=== PATIENT | female | born 1930 | race Caucasian/White ===

== ENCOUNTER → 2017-04-08 | Outpatient (CLI) | payer MEDICARE, OTHER ==
--- NOTE | 2017-04-11 14:08 | MM ---
Reason for exam: screening (asymptomatic). Last mammogram was performed 1 year and 1 month ago. History: Patient is postmenopausal and history of other cancer. Benign right mammotome panel of the right breast, May 26, 2009. Took estrogen for 20 years beginning at age 58. Physical Findings: A clinical breast exam by your physician is recommended on an annual basis and results should be correlated with mammographic findings. MG 3D Screening Mammo W/Cad Bilateral CC and MLO view(s) were taken. Prior study comparison: February 24, 2016, bilateral MG screening mammo w CAD. February 05, 2015, bilateral MG screening mammo w CAD. Finding: There is a typically benign equal density (isodense), oval mass located 5 cm from the nipple in the inferior middle position of the right breast, may have been present previously. Previous mammotome biopsy in the right breast x 2. ASSESSMENT: Probably benign, BI-RAD 3 RECOMMENDATION: Follow-up diagnostic mammogram of the right breast in 6 months.
== END | disposition home or self-care (01) ==
LOC: RADMAMWWP 14:04
PROVIDERS: ATTEND Family Medicine
DX: Z12.31 Encounter for screening mammogram for malignant neoplasm of breast (principal)
CPT/HCPCS: 77063; G0202

== ENCOUNTER 2019-08-02 11:48 | Inpatient (IN) | payer MEDICARE, OTHER ==
[2019-08-02] MEDS ORDERED: SODIUM CHLORIDE 0.9% 1,000 ML IV ONE (12:09)
--- NOTE | 2019-08-02 12:09 | ED ---
General Adult HPI - General Chief complaint: Allergic Reaction Stated complaint: allergic reaction Time Seen by Provider: 08/02/19 11:50 Source: patient, EMS, RN notes reviewed, old records reviewed Mode of arrival: EMS Limitations: no limitations - History of Present Illness Initial comments: this is an 89-year-old female presents emergency department after having visited her recent hospital being transferred to us. Patient went to [facility] this morning because of severe right upper quadrant abdominal pain. Patient had an ultrasound and a CAT scan while she was there it did show a distended gallbladder as well as dilated common bile duct and also showed some fluid in theperitoneal cavity. Patient also had a white count elevated liver enzymes. Patient did have reaction to the contrast which was treated at [facility] currently she is not short of breath and having no itching or hives. Patient states her abdominal pain currently is much better but if you press on it does still hurt. Patient denies any shortness of breath or difficulty breathing currently. Patient denies any palpitations. Patient states she always has a little bit of edema to both legs - Related Data Allergies Allergy/AdvReac Type Severity Reaction Status Date / Time codeine Allergy Unknown Verified 08/02/19 11:59 Iodinated Contrast Media Allergy Wheezing Verified 08/02/19 12:01 Penicillins Allergy Unknown Unverified 08/02/19 12:01 Sulfa (Sulfonamide Allergy Unknown Unverified 08/02/19 12:00 Antibiotics) Review of Systems ROS Statement: Those systems with pertinent positive or pertinent negative responses have been documented in the HPI. ROS Other: All systems not noted in ROS Statement are negative. Past Medical History Past Medical History: Cancer Additional Past Medical History / Comment(s): basal cell carcinoma History of Any Multi-Drug Resistant Organisms: None Reported Additional Past Surgical History / Comment(s): Hysterctomy Past Psychological History: No Psychological Hx Reported Smoking Status: Never smoker Past Alcohol Use History: None Reported Past Drug Use History: None Reported General Exam - General Exam Comments Initial Comments: GENERAL: Patient is well-developed and well-nourished. Patient is nontoxic and well- hydrated and is in mild distress. ENT: Neck is soft and supple. No significant lymphadenopathy is noted. Oropharynx is clear. Moist mucous membranes. Neck has full range of motion without eliciting any pain. EYES: The sclera were anicteric and conjunctiva were pink and moist. Extraocular movements were intact and pupils were equal round and reactive to light. Eyelids were unremarkable. PULMONARY: Unlabored respirations. Good breath sounds bilaterally. No audible rales rhonchi or wheezing was noted. CARDIOVASCULAR: There is a regular rate and rhythm without any murmurs gallops or rubs. ABDOMEN: patient is right upper quadrant abdominal tenderness. No palpable organomegaly was noted. There is no palpable pulsatile mass. SKIN: Skin is clear with no lesions or rashes and otherwise unremarkable. NEUROLOGIC: Patient is alert and oriented x3. Cranial nerves II through XII are grossly intact. Motor and sensory are also intact. Normal speech, volume and content. Symmetrical smile. MUSCULOSKELETAL: Normal extremities with adequate strength and full range of motion. 1+ edema bilaterally LYMPHATICS: No significant lymphadenopathy is noted PSYCHIATRIC: Normal psychiatric evaluation. Limitations: no limitations Course Vital Signs 08/02/19 11:50 Temperature 99.1 F Pulse Rate 59 L Respiratory 18 Rate Blood Pressure 119/60 O2 Sat by Pulse 98 Oximetry Medical Decision Making - Medical Decision Making EKG shows normal sinus rhythm at 63 bpm MI interval is 138 QRS is 72 QT interval 46 QTC is 415. Patient's EKG shows no ST segment elevation or depression or T wave abnormalities are noted. I spoke with Dr. Terry Stewart will be happy to see the patient on consult. I called Dr. Yuen I spoke with him he agreed to admit the patient admitted the patient I consult with Dr. Devlin and Dr. Vivar. I wrote admitting orders. Disposition Clinical Impression: Choledocholithiasis with acute cholecystitis Disposition: ADMITTED IP TO THIS HOSP Referrals: Davonte Gross DO [Primary Care Provider] - 1-2 days Time of Disposition: 12:09
[2019-08-02] MEDS ORDERED: HYDROmorphone 0.5 MG/0.5 ML SYRINGE IVP PRN (12:12)
[2019-08-02 14:14] LABS: Appearance,Urine Clear (Clear); Bilirubin,Urine Negative (Negative); Blood,Urine Negative (Negative); Color,Urine Yellow; Glucose,Urine (UA) 2+ (Negative); Ketones,Urine Trace (Negative); Leukocyte Esterase,Urine Negative (Negative); Mucus,Urine Rare /hpf; Nitrite,Urine Negative (Negative); PH, Urine 5.5 (5.0-8.0); Protein,Urine 1+ (Negative); RBC,Urine 1 /hpf (0-5); Urobilinogen,Urine <2.0 mg/dL (<2.0); WBC,Urine <1 /hpf (0-5)
[2019-08-02] MEDS ORDERED: LEVOFLOXACIN 500MG-D5W PMX 500 MG in DEXTROSE/WATER 1 100ML.BAG IVPB SCH (17:00)
[2019-08-02] MEDS: LEVOFLOXACIN 500MG-D5W PMX 500 MG in DEXTROSE/WATER 1 100ML.BAG IVPB SCH (22:27)
--- NOTE | 2019-08-02 22:58 | P.HPIM ---
History of Present Illness H&P Date: 08/02/19 Chief Complaint: Abdominal pain History of presenting complaint: This is a very pleasant [address] Cliff Landis. Chronic stable medical conditions include diabetes mellitus type 2, GERD, hypertension, hyperlipidemia, Luzma arthritis, diabetic peripheral neuropathy and cognitive impairment. Patient not the best of historians. Her son is at the bedside. She been having abdominal pain on and off for quite some time. Last 1 week her pain has become much worse. It seems related to food. In the right upper abdomen. No obvious fever and chills. Localized right upper quadrant. Patient went into [facility]. Computed tomography scan of the abdomen and ultrasound showed sliding hiatal hernia and large gallbladder with thickened wall and stones and common bile duct with 8 mm. We'll also some splenomegaly. And a complex lesion in the right lobe of the liver. Patient subsequently was transferred down here. Consultation with GI and surgery was done. No obvious nausea vomiting. Review of systems: GEN.: Tired EYES: None HEENT: Decreased hearing NECK: None RESPIRATORY: None CARDIOVASCULAR: None GASTROINTESTINAL: As above GENITOURINARY: None MUSCULOSKELETAL: Joint pains] LYMPHATICS: None HEMATOLOGICAL: None PSYCHIATRY: Forgetful NEUROLOGICAL: Uses a cane Social history: Does not smoke or drink alcohol. Lives with her . Does use a cane. Family history: Reviewed, noncontributory to presentation Physical examination: VITAL SIGNS: 96.8, 50, 16, 109/69, 94% on 2 L GENERAL: 29.1, laying in bed not in distress. EYES: Pupils equal. Conjunctiva normal. HEENT: External appearance of nose and ears normal, oral cavity grossly normal decreased hearing. NECK: JVD not raised; masses not palpable. HEART: First and second heart sounds are normal; no edema. LUNGS: Respiratory rate normal; clear to auscultation. ABDOMEN: Soft, mild right upper quadrant tenderness, no guarding or rigidity, liver spleen not palpable, no masses palpable. PSYCH: [Patient able to answer questions though rather slowly l. NEUROLOGICAL: Cranial nerves grossly intact; no facial asymmetry, power and sensation grossly intact. LYMPHATICS: No lymph nodes palpable in the axilla and neck MUSCULOSKELETAL: Evidence of OA especially in the hands and knees INVESTIGATIONS, reviewed in the clinical context: Report from [facility] shows potassium 4.4 bun 25 creatinine 1 white count 15.8 hemoglobin 9.6 platelets 141 AST 182 ALT 135 Computed tomography scan of the abdomen and ultrasound of the liver show sliding hiatal hernia gallbladder with stones thickened gallbladder wall: Bilateral 8 mm and lesion complex in the right lobe liver, splenomegaly Assessment: -Choledocholithiasis, with symptoms coming on for quite some time now with acute presentation -Splenomegaly -Sliding hiatal hernia -Diabetes mellitus type 2 on oral hypoglycemic -Chronic urinary stress incontinence -Essential hypertension -Hyperlipidemia -Diabetic peripheral neuropathy -Primary osteoarthritis -GERD -Cognitive impairment Plan: Home medications resumed Accu-Cheks will be followed. Lovenox for DVT prophylaxis. Patient is nothing by mouth after midnight.'s. Consultations made to GI surgery. Care was discussed with son at the bedside. Past Medical History Past Medical History: Cancer, Diabetes Mellitus, GERD/Reflux, GI Bleed, Hyperlipidemia, Hypertension, Osteoarthritis (OA) Additional Past Medical History / Comment(s): basal cell carcinoma, hisotry of kindey stones History of Any Multi-Drug Resistant Organisms: None Reported Additional Past Surgical History / Comment(s): Hysterctomy Past Psychological History: No Psychological Hx Reported Smoking Status: Never smoker Past Alcohol Use History: None Reported Past Drug Use History: None Reported Medications and Allergies Home Medications Medication Instructions Recorded Confirmed Type ALPRAZolam [Xanax] 0.25 mg PO QAM 08/02/19 08/02/19 History Allopurinol [Zyloprim] 100 mg PO HS 08/02/19 08/02/19 History Ascorbic Acid [Vitamin C] 500 mg PO QAM 08/02/19 08/02/19 History Cholecalciferol (Vitamin D3) 2,000 unit PO QAM 08/02/19 08/02/19 History [Vitamin D3] Donepezil HCl [Aricept] 5 mg PO HS 08/02/19 08/02/19 History Fosinopril Sodium [Monopril] 20 mg PO BID 08/02/19 08/02/19 History Gabapentin [Neurontin] 300 mg PO BID 08/02/19 08/02/19 History Glimepiride [Amaryl] 2 mg PO AC-SUPPER 08/02/19 08/02/19 History Glimepiride [Amaryl] 4 mg PO AC-BRKFST 08/02/19 08/02/19 History Multivitamins, Thera [Multivitamin 1 tab PO QAM 08/02/19 08/02/19 History (formulary)] Potassium Chloride [Klor-Con 20] 20 meq PO QAM 08/02/19 08/02/19 History Pravastatin Sodium [Pravachol] 20 mg PO HS 08/02/19 08/02/19 History Ranitidine HCl [Zantac] 150 mg PO HS 08/02/19 08/02/19 History Tolterodine Tartrate [Detrol LA] 4 mg PO QAM 08/02/19 08/02/19 History amLODIPine [Norvasc] 5 mg PO QAM 08/02/19 08/02/19 History metFORMIN HCL [Glucophage] 500 mg PO DAILY 08/02/19 08/02/19 History Allergies Allergy/AdvReac Type Severity Reaction Status Date / Time aspirin Allergy Unknown Verified 08/02/19 12:55 codeine Allergy Unknown Verified 08/02/19 12:55 Iodinated Contrast Media Allergy Wheezing Verified 08/02/19 12:55 Penicillins Allergy Unknown Verified 08/02/19 12:55 Sulfa (Sulfonamide Allergy Unknown Verified 08/02/19 12:55 Antibiotics) Physical Exam Vitals: Vital Signs Temp Pulse Pulse Resp BP BP Pulse Ox 08/02/19 20:00 96.8 F L 50 L 16 109/69 94 L 08/02/19 16:00 52 L 18 104/50 98 08/02/19 15:00 55 L 18 105/55 98 08/02/19 14:00 50 L 18 98 08/02/19 13:00 58 L 18 105/55 98 08/02/19 12:57 58 L 18 117/52 98 08/02/19 11:57 58 L 18 124/76 98 08/02/19 11:50 99.1 F 59 L 18 119/60 98 Intake and Output 08/02/19 08/02/19 08/02/19 06:59 14:59 22:59 Other: # Voids 0 Weight 79.379 kg 79.379 kg Results Labs: Abnormal Lab Results - Last 24 Hours (Table) 08/02/19 Range/Units 13:23 Ur Specific [place] 1.050 H (1.001-1.035) Urine Protein 1+ H (Negative) Urine Glucose (UA) 2+ H (Negative) Urine Ketones Trace H (Negative) Urine Mucus Rare H (None) /hpf Thrombosis Risk Factor Assmnt - Choose All That Apply Any of the Below Risk Factors Present?: Yes Each Factor Represents 1 point: Minor surgery planned Other Risk Factors: Yes Each Risk Factor Represents 3 Points: Age 75 years or older Thrombosis Risk Factor Assessment Total Risk Factor Score: 4 Thrombosis Risk Factor Assessment Level: Moderate Risk
[2019-08-03] MEDS: DONEPEZIL 5 MG TAB PO SCH (00:26)
[2019-08-03] MEDS: ALLOPURINOL 100 MG TAB PO SCH ×2 (00:26→23:04)
[2019-08-03] MEDS: GABAPENTIN 300 MG CAP PO SCH ×3 (00:26→23:04)
[2019-08-03] MEDS: PRAVASTATIN SODIUM 20 MG TAB PO SCH ×2 (00:27→23:04)
--- NOTE | 2019-08-03 01:41 | P.CONS ---
History of Present Illness - Reason for Consult Consult date: 08/02/19 Abdominal pain Requesting physician: Denis Yuen - Chief Complaint Abdominal pain - History of Present Illness 83-year-old female with medical history including diabetes mellitus, GERD, hypertension, hyperlipidemia, osteoarthritis and memory impairment presented to the hospital as a transfer from [facility] where she had been seen with complaints of abdominal pain. The patient had been having severe abdominal pain associated with eating. Predominantly in the epigastric region and right upper quadrant of her abdomen. She underwent evaluation with computed tomography scan of the abdomen with findings of a dilated gallbladder with an 8 mm CBD and a hiatal hernia. Concerns were for possible biliary pathology patient pain and she was transferred for further evaluation. The patient is seen resting comfortably in bed. Of note history is been taken in conversation with the patient's daughter, with the patient and on review of the medical record. Review of Systems REVIEW OF SYSTEMS: CONSTITUTIONAL: Denies any fevers, chills, weight change or fatigue. CARDIOVASCULAR: Denies any chest pain, palpitations high or low blood pressures RESPIRATORY: Denies any shortness of breath, hemoptysis or cough. GENITOURINARY: No dysuria or hematuria. MUSCULOSKELETAL: No weakness reported. SKIN: Denies any new rashes or lesions, jaundice or pallor. PSYCHIATRIC: Denies any depression or anxiety, memory impairment based. NEUROLOGY: Denies headache, denies any new focal deficits. EARS/NOSE/THROAT: No recent hearing change, congestion, nasal discharge or sore throat. EYES: No pain in eyes, discharge or change in vision. GASTROINTESTINAL: As per HPI. Past Medical History Past Medical History: Cancer, Diabetes Mellitus, GERD/Reflux, GI Bleed, Hyperlipidemia, Hypertension, Osteoarthritis (OA) Additional Past Medical History / Comment(s): basal cell carcinoma, hisotry of kindey stones History of Any Multi-Drug Resistant Organisms: None Reported Additional Past Surgical History / Comment(s): Hysterctomy Past Psychological History: No Psychological Hx Reported Smoking Status: Never smoker Past Alcohol Use History: None Reported Past Drug Use History: None Reported Additional History: Family history: Reviewed and noncontributory to current medical presentation. Medications and Allergies Home Medications Medication Instructions Recorded Confirmed Type ALPRAZolam [Xanax] 0.25 mg PO QAM 08/02/19 08/02/19 History Allopurinol [Zyloprim] 100 mg PO HS 08/02/19 08/02/19 History Ascorbic Acid [Vitamin C] 500 mg PO QAM 08/02/19 08/02/19 History Cholecalciferol (Vitamin D3) 2,000 unit PO QAM 08/02/19 08/02/19 History [Vitamin D3] Donepezil HCl [Aricept] 5 mg PO HS 08/02/19 08/02/19 History Fosinopril Sodium [Monopril] 20 mg PO BID 08/02/19 08/02/19 History Gabapentin [Neurontin] 300 mg PO BID 08/02/19 08/02/19 History Glimepiride [Amaryl] 2 mg PO AC-SUPPER 08/02/19 08/02/19 History Glimepiride [Amaryl] 4 mg PO AC-BRKFST 08/02/19 08/02/19 History Multivitamins, Thera [Multivitamin 1 tab PO QAM 08/02/19 08/02/19 History (formulary)] Potassium Chloride [Klor-Con 20] 20 meq PO QAM 08/02/19 08/02/19 History Pravastatin Sodium [Pravachol] 20 mg PO HS 08/02/19 08/02/19 History Ranitidine HCl [Zantac] 150 mg PO HS 08/02/19 08/02/19 History Tolterodine Tartrate [Detrol LA] 4 mg PO QAM 08/02/19 08/02/19 History amLODIPine [Norvasc] 5 mg PO QAM 08/02/19 08/02/19 History metFORMIN HCL [Glucophage] 500 mg PO DAILY 08/02/19 08/02/19 History Allergies Allergy/AdvReac Type Severity Reaction Status Date / Time aspirin Allergy Unknown Verified 08/02/19 12:55 codeine Allergy Unknown Verified 08/02/19 12:55 Iodinated Contrast Media Allergy Wheezing Verified 08/02/19 12:55 Penicillins Allergy Unknown Verified 08/02/19 12:55 Sulfa (Sulfonamide Allergy Unknown Verified 08/02/19 12:55 Antibiotics) Physical Exam Vitals: Vital Signs Temp Pulse Pulse Resp BP BP Pulse Ox 08/02/19 20:00 96.8 F L 50 L 16 109/69 94 L 08/02/19 16:00 52 L 18 104/50 98 08/02/19 15:00 55 L 18 105/55 98 08/02/19 14:00 50 L 18 98 08/02/19 13:00 58 L 18 105/55 98 08/02/19 12:57 58 L 18 117/52 98 08/02/19 11:57 58 L 18 124/76 98 08/02/19 11:50 99.1 F 59 L 18 119/60 98 Intake and Output 08/02/19 08/02/19 08/03/19 14:59 22:59 06:59 Other: # Voids 0 Weight 79.379 kg 79.379 kg On physical examination, patient appears comfortable in no apparent distress. HEAD: Normocephalic, atraumatic. EYES: No scleral icterus. No conjunctival injection. MOUTH: No lesions, tongue midline. NECK: Trachea midline, no gross abnormalities. CHEST: Decreased air entry in all lung abreu. HEART: S1-S2 appreciated. ABDOMEN: Soft, mildly tender to palpation. Bowel sounds are positive. No organomegaly. No guarding or rigidity. EXTREMITIES: No pedal edema. SKIN: No rashes, no jaundice. NEUROLOGIC: Alert and oriented to person. Results Labs: Abnormal Lab Results - Last 24 Hours (Table) 08/02/19 Range/Units 13:23 Ur Specific [place] 1.050 H (1.001-1.035) Urine Protein 1+ H (Negative) Urine Glucose (UA) 2+ H (Negative) Urine Ketones Trace H (Negative) Urine Mucus Rare H (None) /hpf CT scan - abdomen: report reviewed (Computed tomography scan of the abdomen with findings of an 8 mm CBD, distended gallbladder with stones and sludge) Assessment and Plan (1) Abdominal pain Narrative/Plan: 81-year-old female with multiple medical comorbidities presenting to the hospital with complaints of abdominal pain, with computed tomography scan findings of a distended gallbladder with gallstones and an 8 mm common bile duct. Patient also had elevation in her liver enzymes in both a cholestatic and hepatocellular pattern with total bilirubin greater than 2. Unclear if secondary to acute cholecystitis, a gallstone which has passed through the bile duct, choledocholithiasis, or other etiology. Current Visit: Yes Status: Acute Code(s): R10.9 - UNSPECIFIED ABDOMINAL PAIN SNOMED Code(s): 23827171 (2) Cholelithiasis Current Visit: Yes Status: Acute Code(s): K80.20 - CALCULUS OF GALLBLADDER W/O CHOLECYSTITIS W/O OBSTRUCTION SNOMED Code(s): 119939822 (3) Elevated liver enzymes Current Visit: Yes Status: Acute Code(s): R74.8 - ABNORMAL LEVELS OF OTHER SERUM ENZYMES SNOMED Code(s): 476671617 Plan: Supportive care Nothing by mouth Levofloxacin added for antibiotic coverage Continue monitor CBC, CMP Computed tomography scan abdomen report reviewed MRCP pending for further evaluation of the biliary system No plans for ERCP at this time, however if liver enzymes continue to trend up or MRCP imaging is consistent with choledocholithiasis will proceed to ERCP The case has been discussed with the patient and her daughter at length, we'll continue to follow with further recommendations based on clinical course, as well as imaging and laboratory evaluation Thank you for allowing us to participate in the care of this patient we will continue to follow
[2019-08-03] MEDS: ALPRAZolam 0.25 MG TAB PO SCH (07:18)
[2019-08-03 07:21] LABS: Glucose,Whole Blood 214 mg/dL (75-99)
[2019-08-03] MEDS: amLODIPine 5 MG TAB PO SCH (07:27)
[2019-08-03] MEDS: LISINOPRIL 20 MG TAB PO SCH (07:27)
[2019-08-03] MEDS: ENOXAPARIN 40 MG/0.4 ML SYRINGE SQ SCH (07:28)
[2019-08-03] MEDS: INSULIN ASPART (NovoLOG) 100 UNIT/ML VIAL SQ SCH ×3 (07:28→16:44)
[2019-08-03] MEDS: OXYBUTYNIN 10 MG TAB.ER.24 PO SCH (07:33)
[2019-08-03] MEDS ORDERED: VANCOMYCIN IV PER PHARMACY 1 EACH MISC MISCELLANE PRN (09:26)
[2019-08-03 09:41] LABS: Basophils % (A) 0 %; Eosinophils % (A) 0 %; HCT 27.7 % (34.0-46.0); HGB 8.7 gm/dL (11.4-16.0); Hypochromasia Moderate; Lymphocytes # (A) 0.4 k/uL (1.0-4.8); Lymphocytes % (A) 3 %; MCH 28.3 pg (25.0-35.0); MCHC 31.3 g/dL (31.0-37.0); MCV 90.4 fL (80.0-100.0); Mean Platelet Volume 9.4; Monocytes # (A) 0.3 k/uL (0-1.0); Monocytes % (A) 2 %; Neutrophils # (A) 10.6 k/uL (1.3-7.7); Neutrophils % (A) 94 %; Platelet Count 109 k/uL (150-450); RBC 3.07 m/uL (3.80-5.40); RDW 15.4 % (11.5-15.5); WBC 11.3 k/uL (3.8-10.6)
[2019-08-03 09:57] LABS: Albumin 2.9 g/dL (3.5-5.0); Calcium 8.5 mg/dL (8.4-10.2); Potassium 5.6 mmol/L (3.5-5.1); Total Protein 5.6 g/dL (6.3-8.2)
[2019-08-03] MEDS ORDERED: VANCOMYCIN 1,500 MG in SODIUM CHLORIDE 0.9% 250 ML IVPB ONE (10:00)
[2019-08-03] MEDS ORDERED: INDOMETHACIN 50MG SUPPOSITORY RECTAL ONE (12:00)
[2019-08-03 12:10] LABS: Glucose,Whole Blood 190 mg/dL (75-99)
--- NOTE | 2019-08-03 12:17 | MR ---
MRCP HISTORY: Elevated liver function tests and bilirubin Multiplanar multisequence imaging obtained through the liver and biliary system with three-dimensiona l reconstructions performed on an alternate workstation. No comparisons There is artifact over the exam The spleen is enlarged at approximately 14. cm in cephalad to caudal dimension, there is a hypointens e focus on T2-weighted sequences inferiorly measuring 18 mm. Mildly T2 intense focus in the posterior aspect of the spleen measures approximately 3.4 cm. Smaller T2 intense focus present in the posterio r aspect of the spleen medially measures 16 mm, axial image 21 series 501 shows T2 intense focus petra uring only 7 mm laterally within the spleen, additional small lesions may be present. The gallbladder is distended and shows dependent luminal foci of low intensity compatible with stones , pericholecystic inflammatory changes are present. At the level of the jayesh hepatis anteriorly ther e is a heterogeneous mass present which is in close contiguity with the cephalad aspect of the gallbl adder and also along the medial segment of the left lobe of liver measuring 7.6 x 6.8 x 5.4 cm, suspe ct there is local mass effect causing biliary dilation in the left lobe of the liver. Right lobe is s pared. There is local mass effect on the proximal duodenum, no evident fat plane identified, there Ma y BE local involvement of the tumor mass within the duodenum. The adrenal glands and kidneys are within normal limits. No evident pancreatic mass. There is some at rophy of the pancreas. Small hiatal hernia is present. No evident pleural effusion. Possible hemangio mas within the spine, there are degenerative disc changes. The heart is enlarged. IMPRESSION: Mass noted within the right upper quadrant with involvement of the gallbladder, liver, du odenum, consider cholangiocarcinoma, primary liver tumor, gallbladder carcinoma, there is cholelithia sis with inflammatory changes suspected, biliary dilation due to local mass effect. CT scan may be of benefit for better evaluation. Splenomegaly with indeterminate splenic masses. Additional findings koki moses.
[2019-08-03] MEDS ORDERED: IV FLUID CONTINUATION 1,000 ML IV ONE (12:28)
[2019-08-03 12:55] LABS: Glucose,Whole Blood 202 mg/dL (75-99)
[2019-08-03] MEDS ORDERED: LACTATED RINGERS 1,000 ML IV ONE (13:03)
[2019-08-03] MEDS ORDERED: LIDOCAINE 1% 20 ML VIAL (10MG/ML) FOR IV START INTRADERMA ONE (13:03)
[2019-08-03] MEDS ORDERED: IOPAMIDOL-300 50ML BTL INJ ONE (13:56)
[2019-08-03] MEDS ORDERED: SUCCINYLCHOLINE CHLORIDE 100 MG/5 ML SYR IV ONE (14:13)
[2019-08-03] MEDS ORDERED: LIDOCAINE 1% INJ 10MG/ML (20 ML MDV) ONE (14:13)
[2019-08-03] MEDS ORDERED: ONDANSETRON 4 MG/2 ML VIAL ONE (14:13)
[2019-08-03] MEDS ORDERED: MIDAZOLAM 2 MG/2 ML VIAL ONE (14:13)
[2019-08-03] MEDS ORDERED: fentaNYL (PF) 50 MCG/ML 2 ML AMP ONE (14:13)
[2019-08-03] MEDS ORDERED: PROPOFOL 10 MG/ML 20 ML VIAL IV ONE (14:13)
--- NOTE | 2019-08-03 14:37 | P.GSHP ---
History of Present Illness H&P Date: 08/03/19 Chief Complaint: right upper quadrant pain patient presents to the hospital after initially presenting at [facility] yesterday morning. Patient was having bad pain right upper quadrant. Ultrasound and CAT scan performed there which showed a distended gallbladder and a distended bile duct. She was transferred here for further evaluation. Liver enzymes have been noted to increase since transfer. Underwent MRCP earlier today which suggests the presence of a mass involving the gallbladder and indirect or direct involvement of the biliary tree causing biliary distention left lobe of liver.she has already been seen by GI. He had a fever of 100.7. No history of similar events in the past. - Review of Systems Comment: The patient denies any acute changes in vision or hearing, no dysphagia or odynophagia, no chest pain or shortness of breath, no dysuria or hematuria, no headache, no runny nose, no rectal bleeding or melena, no unexplained weight loss Past Medical History Past Medical History: Cancer, Diabetes Mellitus, GERD/Reflux, GI Bleed, Hyperlipidemia, Hypertension, Osteoarthritis (OA) Additional Past Medical History / Comment(s): basal cell carcinoma, hisotry of kindey stones History of Any Multi-Drug Resistant Organisms: None Reported Additional Past Surgical History / Comment(s): Hysterctomy Past Psychological History: No Psychological Hx Reported Smoking Status: Never smoker Past Alcohol Use History: None Reported Past Drug Use History: None Reported Medications and Allergies Home Medications Medication Instructions Recorded Confirmed Type ALPRAZolam [Xanax] 0.25 mg PO QAM 08/02/19 08/02/19 History Allopurinol [Zyloprim] 100 mg PO HS 08/02/19 08/02/19 History Ascorbic Acid [Vitamin C] 500 mg PO QAM 08/02/19 08/02/19 History Cholecalciferol (Vitamin D3) 2,000 unit PO QAM 08/02/19 08/02/19 History [Vitamin D3] Donepezil HCl [Aricept] 5 mg PO HS 08/02/19 08/02/19 History Fosinopril Sodium [Monopril] 20 mg PO BID 08/02/19 08/02/19 History Gabapentin [Neurontin] 300 mg PO BID 08/02/19 08/02/19 History Glimepiride [Amaryl] 2 mg PO AC-SUPPER 08/02/19 08/02/19 History Glimepiride [Amaryl] 4 mg PO AC-BRKFST 08/02/19 08/02/19 History Multivitamins, Thera [Multivitamin 1 tab PO QAM 08/02/19 08/02/19 History (formulary)] Potassium Chloride [Klor-Con 20] 20 meq PO QAM 08/02/19 08/02/19 History Pravastatin Sodium [Pravachol] 20 mg PO HS 08/02/19 08/02/19 History Ranitidine HCl [Zantac] 150 mg PO HS 08/02/19 08/02/19 History Tolterodine Tartrate [Detrol LA] 4 mg PO QAM 08/02/19 08/02/19 History amLODIPine [Norvasc] 5 mg PO QAM 08/02/19 08/02/19 History metFORMIN HCL [Glucophage] 500 mg PO DAILY 08/02/19 08/02/19 History Allergies Allergy/AdvReac Type Severity Reaction Status Date / Time aspirin Allergy Unknown Verified 08/02/19 12:55 codeine Allergy Unknown Verified 08/02/19 12:55 Iodinated Contrast Media Allergy Wheezing Verified 08/02/19 12:55 Penicillins Allergy Unknown Verified 08/02/19 12:55 Sulfa (Sulfonamide Allergy Unknown Verified 08/02/19 12:55 Antibiotics) Surgical - Exam Vital Signs Temp Pulse Resp BP Pulse Ox 99.1 F 59 L 18 119/60 98 08/02/19 11:50 08/02/19 11:50 08/02/19 11:50 08/02/19 11:50 08/02/19 11:50 Physical exam: General: Well-developed, well-nourished HEENT: Normocephalic, sclerae mildly icteric Abdomen: right upper quadrant tenderness with subtle fullness, nondistended Extremities: No edema Neuro: Alert and oriented Results - Labs 08/03/19 09:03 08/03/19 09:03 Abnormal Lab Results - Last 24 Hours (Table) 08/02/19 08/03/19 08/03/19 Range/Units 13:23 07:03 09:03 WBC 11.3 H (3.8-10.6) k/uL RBC 3.07 L (3.80-5.40) m/uL Hgb 8.7 L (11.4-16.0) gm/dL Hct 27.7 L (34.0-46.0) % Plt Count 109 L (150-450) k/uL Neutrophils # 10.6 H (1.3-7.7) k/uL Lymphocytes # 0.4 L (1.0-4.8) k/uL Potassium (3.5-5.1) mmol/L Chloride (98-107) mmol/L Carbon Dioxide (22-30) mmol/L BUN (7-17) mg/dL Creatinine (0.52-1.04) mg/dL Glucose (74-99) mg/dL POC Glucose (mg/dL) 214 H (75-99) mg/dL Total Bilirubin (0.2-1.3) mg/dL AST (14-36) U/L ALT (4-34) U/L Alkaline Phosphatase (38-126) U/L Total Protein (6.3-8.2) g/dL Albumin (3.5-5.0) g/dL Ur Specific [place] 1.050 H (1.001-1.035) 08/03/19 08/03/19 08/03/19 Range/Units 09:03 12:07 12:54 WBC (3.8-10.6) k/uL RBC (3.80-5.40) m/uL Hgb (11.4-16.0) gm/dL Hct (34.0-46.0) % Plt Count (150-450) k/uL Neutrophils # (1.3-7.7) k/uL Lymphocytes # (1.0-4.8) k/uL Potassium 5.6 H (3.5-5.1) mmol/L Chloride 108 H (98-107) mmol/L Carbon Dioxide 20 L (22-30) mmol/L BUN 39 H (7-17) mg/dL Creatinine 1.60 H (0.52-1.04) mg/dL Glucose 191 H (74-99) mg/dL POC Glucose (mg/dL) 190 H 202 H (75-99) mg/dL Total Bilirubin 4.0 H (0.2-1.3) mg/dL AST 120 H (14-36) U/L ALT 140 H (4-34) U/L Alkaline Phosphatase 222 H (38-126) U/L Total Protein 5.6 L (6.3-8.2) g/dL Albumin 2.9 L (3.5-5.0) g/dL Ur Specific [place] (1.001-1.035) Microbiology - Last 24 Hours (Table) 08/02/19 12:32 Blood Culture Gram Stain - Preliminary Blood 08/02/19 12:32 Blood Culture - Final Blood Diabetes panel 08/03/19 Range/Units 09:03 Sodium 137 (137-145) mmol/L Potassium 5.6 H (3.5-5.1) mmol/L Chloride 108 H (98-107) mmol/L Carbon Dioxide 20 L (22-30) mmol/L BUN 39 H (7-17) mg/dL Creatinine 1.60 H (0.52-1.04) mg/dL Glucose 191 H (74-99) mg/dL Calcium 8.5 (8.4-10.2) mg/dL AST 120 H (14-36) U/L ALT 140 H (4-34) U/L Alkaline Phosphatase 222 H (38-126) U/L Total Protein 5.6 L (6.3-8.2) g/dL Albumin 2.9 L (3.5-5.0) g/dL Calcium panel 08/03/19 Range/Units 09:03 Calcium 8.5 (8.4-10.2) mg/dL Albumin 2.9 L (3.5-5.0) g/dL Pituitary panel 08/03/19 Range/Units 09:03 Sodium 137 (137-145) mmol/L Potassium 5.6 H (3.5-5.1) mmol/L Chloride 108 H (98-107) mmol/L Carbon Dioxide 20 L (22-30) mmol/L BUN 39 H (7-17) mg/dL Creatinine 1.60 H (0.52-1.04) mg/dL Glucose 191 H (74-99) mg/dL Calcium 8.5 (8.4-10.2) mg/dL Adrenal panel 08/03/19 Range/Units 09:03 Sodium 137 (137-145) mmol/L Potassium 5.6 H (3.5-5.1) mmol/L Chloride 108 H (98-107) mmol/L Carbon Dioxide 20 L (22-30) mmol/L BUN 39 H (7-17) mg/dL Creatinine 1.60 H (0.52-1.04) mg/dL Glucose 191 H (74-99) mg/dL Calcium 8.5 (8.4-10.2) mg/dL Total Bilirubin 4.0 H (0.2-1.3) mg/dL AST 120 H (14-36) U/L ALT 140 H (4-34) U/L Alkaline Phosphatase 222 H (38-126) U/L Total Protein 5.6 L (6.3-8.2) g/dL Albumin 2.9 L (3.5-5.0) g/dL Assessment and Plan (1) Choledocholithiasis with acute cholecystitis Narrative/Plan: agree with plans for ERCP at this time. We will try to review recent CAT scan films performed at outside institution. continue empiric antibiotics for possible cholangitis. no immediate surgical plans at this time. We'll follow with you. Current Visit: Yes Status: Acute Code(s): K80.42 - CALCULUS OF BILE DUCT W ACUTE CHOLECYSTITIS W/O OBSTRUCTION SNOMED Code(s): 56797451
[2019-08-03 16:25] LABS: Glucose,Whole Blood 228 mg/dL (75-99)
--- NOTE | 2019-08-03 16:39 | P.PCN ---
Date of Procedure: 08/03/19 Description of Procedure: Brief history: 83-year-old female with medical history including diabetes mellitus, GERD, hypertension, hyperlipidemia, osteoarthritis and memory impairment presented to the hospital as a transfer from [facility] where she had been seen with complaints of abdominal pain. The patient had been having severe abdominal pain associated with eating. Predominantly in the epigastric region and right upper quadrant of her abdomen. She underwent evaluation with computed tomography scan of the abdomen with findings of a dilated gallbladder with an 8 mm CBD and a hiatal hernia. Concerns were for possible biliary pathology patient pain and she was transferred for further evaluation. Total bilirubin trended to 4 today. MRCP which was performed in evaluation of possible choledocholithiasis was concerning for dilation of the left hepatic biliary tree with concern for a possible cholangiocarcinoma. Procedure performed: ERCP failed/aborted Preoperative diagnoses: Elevated bilirubin, abnormal MRI imaging, abdominal pain IV sedation per anesthesia: Estimated blood loss: Minimal. Procedure: After informed consent was obtained from the patient and after the risks benefits and complications including bleeding perforation and pancreatitis explained in detail the patient was brought into the endoscopy unit. The patient was placed in prone position and IV conscious sedation was administered by anesthesia under continuous monitoring. The Olympus side-viewing duodenoscope was then inserted into the mouth and esophagus intubated without any difficulty. The scope was gradually advanced into the stomach and duodenum. The major papilla was identified without any difficulty, and appeared somewhat prominent. Multiple attempts were made to cannulate the bile duct and were unsuccessful. Suspicion is for ampullary stenosis or possible distal CBD stone. The pancreatic duct was not cannulated or injected. The patient tolerated the procedure well.. Impression: Failed/aborted ERCP. Recommendations: The findings of this examination were discussed with the patient as well as a family. Okay for liquid diet. Plan is for transfer to tertiary referral center for evaluation by the advanced endoscopy team. Continue antibiotic therapy.
[2019-08-03] MEDS ORDERED: INSULIN ASPART (NovoLOG) 100 UNIT/ML VIAL SQ ONE (16:42)
[2019-08-03] MEDS ORDERED: FAMOTIDINE 20 MG TAB PO SCH (21:00)
[2019-08-03 21:43] LABS: Glucose,Whole Blood 246 mg/dL (75-99)
[2019-08-03] MEDS: LEVOFLOXACIN 500MG-D5W PMX 500 MG in DEXTROSE/WATER 1 100ML.BAG IVPB SCH (23:10)
[2019-08-04] MEDS: DONEPEZIL 5 MG TAB PO SCH (00:01)
--- NOTE | 2019-08-04 00:10 | P.PN ---
Progress Note - Text Progress Note Date: 08/03/19 Chief Complaint: Abdominal pain Interval history: This is a very pleasant [address] Cliff Landis. Chronic stable medical conditions include diabetes mellitus type 2, GERD, hypertension, hyperlipidemia, Luzma arthritis, diabetic peripheral neuropathy and cognitive impairment. Patient not the best of historians. Her son is at the bedside. She been having abdominal pain on and off for quite some time. Last 1 week her pain has become much worse. It seems related to food. In the right upper abdomen. No obvious fever and chills. Localized right upper quadrant. Patient went into [facility]. Computed tomography scan of the abdomen and ultrasound showed sliding hiatal hernia and large gallbladder with thickened wall and stones and common bile duct with 8 mm. We'll also some splenomegaly. And a complex lesion in the right lobe of the liver. Patient subsequently was transferred down here. Consultation with GI and surgery was done. No obvious nausea vomiting. Today-patient's having right upper quadrant pain. Later today had a MRCP showed mass within the right upper quadrant involvement of the gallbladder, liver down from including cholelithiasis. Ambulatory palpitation. Subsequently ERCP was attempted. unSuccessful. Review of systems: Was done for constitutional, cardiovascular, GI, pulmonary. relevant finding as above Active Medications Allopurinol (Zyloprim) 100 mg PO [facility] Last Admin: 08/03/19 23:04 Dose: 100 mg Documented by: Alprazolam (Xanax) 0.25 mg PO [facility] Last Admin: 08/03/19 07:18 Dose: Not Given Documented by: Amlodipine Besylate (Norvasc) 5 mg PO [facility] Last Admin: 08/03/19 07:27 Dose: 5 mg Documented by: Donepezil HCl (Aricept) 5 mg PO [facility] Last Admin: 08/04/19 00:01 Dose: 5 mg Documented by: Enoxaparin Sodium (Lovenox) 40 mg SQ DAILY [facility] Last Admin: 08/03/19 07:28 Dose: Not Given Documented by: Famotidine (Pepcid) 20 mg PO [facility] Last Admin: 08/03/19 23:04 Dose: 20 mg Documented by: Gabapentin (Neurontin) 300 mg PO BID [facility] Last Admin: 08/03/19 23:04 Dose: 300 mg Documented by: Hydromorphone HCl (Dilaudid) 0.5 mg IVP Q4HR PRN PRN Reason: Pain Last Admin: 08/02/19 12:41 Dose: 0.5 mg Documented by: Levofloxacin 500 mg/ IV (Solution) 100 mls @ 100 mls/hr IVPB Q24H [facility] Last Admin: 08/03/19 23:10 Dose: 100 mls/hr Documented by: Insulin Aspart (Novolog) 0 unit SQ AC-TID [facility]; Protocol Last Admin: 08/03/19 16:44 Dose: Not Given Documented by: Lisinopril (Zestril) 40 mg PO DAILY [facility] Last Admin: 08/03/19 07:27 Dose: 40 mg Documented by: Miscellaneous Information (Pharmacy To Dose Iv Vancomycin) 1 each MISCELLANE DIRECTED PRN PRN Reason: Per Protocol Oxybutynin Chloride (Ditropan Xl) 10 mg PO QAM [facility] Last Admin: 08/03/19 07:33 Dose: 10 mg Documented by: Pravastatin Sodium (Pravachol) 20 mg PO HS [facility] Last Admin: 08/03/19 23:04 Dose: 20 mg Documented by: Physical examination: VITAL SIGNS: 98.2, 82, 16, 109/66, 96% on 2 L GENERAL: Laying in bed, but in distress. EYES: Pupils equal. Conjunctiva normal. HEENT: External appearance of nose and ears normal, oral cavity grossly normal decreased hearing. NECK: JVD not raised; masses not palpable. HEART: First and second heart sounds are normal; no edema. LUNGS: Respiratory rate normal; clear to auscultation. ABDOMEN: Soft, mild right upper quadrant tenderness, no guarding or rigidity, liver spleen not palpable, no masses palpable. PSYCH: [Patient able to answer questions though rather slowly l. MUSCULOSKELETAL: Evidence of OA especially in the hands and knees INVESTIGATIONS, reviewed in the clinical context: MRCP showed a tumor growth in the regional gallbladder liver, duodenal, with gallstones and biliary regurgitation Report from [facility] shows potassium 4.4 bun 25 creatinine 1 white count 15.8 hemoglobin 9.6 platelets 141 AST 182 ALT 135 Computed tomography scan of the abdomen and ultrasound of the liver show sliding hiatal hernia gallbladder with stones thickened gallbladder wall: Bilateral 8 mm and lesion complex in the right lobe liver, splenomegaly Assessment: -Choledocholithiasis, with symptoms coming on for quite some time now with acute presentation -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 She told about the findings. It was decided that GI will talk to the team at [facility], and I will get the patient transferred.
[2019-08-04 02:04] VITALS: RESP 18
[2019-08-04 06:59] LABS: Glucose,Whole Blood 156 mg/dL (75-99)
[2019-08-04 07:19] VITALS: BP 145/70; PULSE 79; TEMP 96.5
[2019-08-04] MEDS: ENOXAPARIN 40 MG/0.4 ML SYRINGE SQ SCH (07:54)
[2019-08-04] MEDS: INSULIN ASPART (NovoLOG) 100 UNIT/ML VIAL SQ SCH ×2 (07:54→13:01)
[2019-08-04] MEDS: OXYBUTYNIN 10 MG TAB.ER.24 PO SCH (07:55)
[2019-08-04] MEDS: ALPRAZolam 0.25 MG TAB PO SCH (07:55)
[2019-08-04] MEDS: LISINOPRIL 20 MG TAB PO SCH (07:55)
[2019-08-04] MEDS: GABAPENTIN 300 MG CAP PO SCH (07:55)
[2019-08-04] MEDS: amLODIPine 5 MG TAB PO SCH (07:55)
[2019-08-04 08:38] LABS: Albumin 2.8 g/dL (3.5-5.0); Calcium 8.6 mg/dL (8.4-10.2); Potassium 5.3 mmol/L (3.5-5.1); Total Bilirubin 4.8 mg/dL (0.2-1.3); Total Protein 5.4 g/dL (6.3-8.2)
[2019-08-04 09:01] LABS: Vancomycin,Random 11.1 ug/mL
[2019-08-04 09:12] LABS: Basophils % (A) 0 %; Eosinophils % (A) 0 %; HCT 26.4 % (34.0-46.0); HGB 8.4 gm/dL (11.4-16.0); Hypochromasia Moderate; Lymphocytes # (A) 0.3 k/uL (1.0-4.8); Lymphocytes % (A) 4 %; MCH 28.7 pg (25.0-35.0); MCHC 31.9 g/dL (31.0-37.0); Mean Platelet Volume 10.4; Monocytes # (A) 0.3 k/uL (0-1.0); Monocytes % (A) 4 %; Neutrophils # (A) 6.9 k/uL (1.3-7.7); Neutrophils % (A) 92 %; Platelet Count 101 k/uL (150-450); RBC 2.93 m/uL (3.80-5.40); RDW 15.5 % (11.5-15.5); WBC 7.5 k/uL (3.8-10.6)
--- NOTE | 2019-08-04 09:12 | FL ---
FLUOROSCOPY 6 seconds of fluoroscopy time were utilized during attempted ERCP. 1 images document the procedure.
[2019-08-04] MEDS ORDERED: VANCOMYCIN 1,500 MG in SODIUM CHLORIDE 0.9% 250 ML IVPB ONE (11:00)
--- NOTE | 2019-08-04 11:49 | P.PN ---
Progress Note - Text Progress Note Date: 08/04/19 the patient is resting comfortably in her bed. [facility]. On exam her vital signs are stable. Her abdomen soft. Patient will be transferred today for cholelithiasis .
[2019-08-04 12:03] LABS: Glucose,Whole Blood 193 mg/dL (75-99)
[2019-08-04] MEDS ORDERED: LEVOFLOXACIN 250 MG TAB PO SCH (21:00)
--- NOTE | 2019-08-05 00:16 | P.DS ---
Providers Date of admission: 08/02/19 12:10 Expected date of discharge: 08/04/19 Attending physician: Denis Yuen Consults: 08/02/19 12:09 Consult Physician Urgent Consulting Provider: Jason Stewart Consult Reason/Comments: choledocholithiasis with cholecystitis Do you want consulting provider notified?: Yes Consult Physician Urgent Consulting Provider: Diann Oden Consult Reason/Comments: choledocholithiasis Do you want consulting provider notified?: Yes Primary care physician: Davonte Coronado [facility] Hospital Course: Chief Complaint: Abdominal pain Hospital course: This is a very pleasant [address] Cliff Landis. Chronic stable medical conditions include diabetes mellitus type 2, GERD, hypertension, hyperlipidemia, Luzma arthritis, diabetic peripheral neuropathy and cognitive impairment. Patient not the best of historians. Her son is at the bedside. She been having abdominal pain on and off for quite some time. Last 1 week her pain has become much worse. It seems related to food. In the right upper abdomen. No obvious fever and chills. Localized right upper quadrant. Patient went into [facility]. Computed tomography scan of the abdomen and ultrasound showed sliding hiatal hernia and large gallbladder with thickened wall and stones and common bile duct with 8 mm. We'll also some splenomegaly. And a complex lesion in the right lobe of the liver. Patient subsequently was transferred down here. Consultation with GI and surgery was done. No obvious nausea vomiting. Today-patient's having right upper quadrant pain. Later today had a MRCP showed mass within the right upper quadrant involvement of the gallbladder, liver down from including cholelithiasis. Ambulatory palpitation. Subsequently ERCP was attempted. unSuccessful. today-above results were discussed in detail with the patient and her and 3 sons. They finally decided to proceed to try transferred to [facility]. I talked with the accepting physician today. Arrange for transfer. All questions were answered. Discussion and discharge planning more than 35 minutes Physical examination: VITAL SIGNS: 96.5, 79, 18, 145/70, 92% on 2 L GENERAL: Laying in bed,comfortable EYES: Pupils equal. Conjunctiva normal. HEENT: External appearance of nose and ears normal, oral cavity grossly normal decreased hearing. NECK: JVD not raised; masses not palpable. HEART: First and second heart sounds are normal; no edema. LUNGS: Respiratory rate normal; clear to auscultation. ABDOMEN: Soft, mild right upper quadrant tenderness, no guarding or rigidity, liver spleen not palpable, no masses palpable. PSYCH: [Patient able to answer questions though rather slowly l. MUSCULOSKELETAL: Evidence of OA especially in the hands and knees INVESTIGATIONS, reviewed in the clinical context: MRCP showed a tumor growth in the regional gallbladder liver, duodenal, with gallstones and biliary regurgitation Report from [facility] shows potassium 4.4 bun 25 creatinine 1 white count 15.8 hemoglobin 9.6 platelets 141 AST 182 ALT 135 Computed tomography scan of the abdomen and ultrasound of the liver show sliding hiatal hernia gallbladder with stones thickened gallbladder wall: Bilateral 8 mm and lesion complex in the right lobe liver, splenomegaly ERCP-unsuccessful Assessment: -Choledocholithiasis, with symptoms coming on for quite some time now with acute presentation -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, liver, duodenal affecting surrounding tissues, type unknown -Splenomegaly -Sliding hiatal hernia -Diabetes mellitus type 2 on oral hypoglycemic -Chronic urinary stress incontinence -Essential hypertension -Hyperlipidemia -Diabetic peripheral neuropathy -Primary osteoarthritis -GERD -Cognitive impairment disposition: Transferred to [facility]: [facility] for higher level of care Plan - Discharge Summary Discharge Rx Participant: No New Discharge Prescriptions: New Levofloxacin 500Mg-D5w Pmx [Levaquin 500Mg-D5w Pmx] 500 mg IVPB Q24H bag Enoxaparin [Lovenox] 40 mg SQ DAILY syringe Continue Tolterodine Tartrate [Detrol LA] 4 mg PO QAM Ascorbic Acid [Vitamin C] 500 mg PO QAM Multivitamins, Thera [Multivitamin (formulary)] 1 tab PO QAM ALPRAZolam [Xanax] 0.25 mg PO QAM amLODIPine [Norvasc] 5 mg PO QAM Glimepiride [Amaryl] 4 mg PO AC-BRKFST Glimepiride [Amaryl] 2 mg PO AC-SUPPER Gabapentin [Neurontin] 300 mg PO BID Fosinopril Sodium [Monopril] 20 mg PO BID Donepezil HCl [Aricept] 5 mg PO HS Allopurinol [Zyloprim] 100 mg PO HS Cholecalciferol (Vitamin D3) [Vitamin D3] 2,000 unit PO QAM Discontinued Ranitidine HCl [Zantac] 150 mg PO HS Pravastatin Sodium [Pravachol] 20 mg PO HS Potassium Chloride [Klor-Con 20] 20 meq PO QAM metFORMIN HCL [Glucophage] 500 mg PO DAILY Discharge Medication List ALPRAZolam [Xanax] 0.25 mg PO QAM 08/02/19 [History] Allopurinol [Zyloprim] 100 mg PO HS 08/02/19 [History] Ascorbic Acid [Vitamin C] 500 mg PO QAM 08/02/19 [History] Cholecalciferol (Vitamin D3) [Vitamin D3] 2,000 unit PO QAM 08/02/19 [History] Donepezil HCl [Aricept] 5 mg PO HS 08/02/19 [History] Fosinopril Sodium [Monopril] 20 mg PO BID 08/02/19 [History] Gabapentin [Neurontin] 300 mg PO BID 08/02/19 [History] Glimepiride [Amaryl] 2 mg PO AC-SUPPER 08/02/19 [History] Glimepiride [Amaryl] 4 mg PO AC-BRKFST 08/02/19 [History] Multivitamins, Thera [Multivitamin (formulary)] 1 tab PO QAM 08/02/19 [History] Tolterodine Tartrate [Detrol LA] 4 mg PO QAM 08/02/19 [History] amLODIPine [Norvasc] 5 mg PO QAM 08/02/19 [History] Enoxaparin [Lovenox] 40 mg SQ DAILY syringe 08/04/19 [Rx] Levofloxacin 500Mg-D5w Pmx [Levaquin 500Mg-D5w Pmx] 500 mg IVPB Q24H bag 08/04/19 [Rx] Follow up Appointment(s)/Referral(s): Davonte Gross DO [Primary Care Provider] - As Needed Patient Instructions/Handouts: Gallstones (DC) Discharge Disposition: OTHER INSTITUTION NOT DEFINED
[2019-08-05] MEDS ORDERED: ENOXAPARIN 30 MG/0.3 ML SYRINGE SQ SCH (09:00)
== END 2019-08-04 14:51 | disposition short-term general hospital (02) | DRG 446 ==
LOC: EC 11:48 → 4SSUR 12:10 → 6NMEDSUR 17:09
PROVIDERS: ADMIT Hospitalist; ATTEND Hospitalist
PROC: 0DJ08ZZ Inspection of Upper Intestinal Tract, Via Natural or Artificial Opening Endoscopic (ICD-10-PCS; principal; 2019-08-03 14:45)
DX: K80.62 Calculus of gallbladder and bile duct with acute cholecystitis without obstruction (principal); K82.8 Other specified diseases of gallbladder; E11.42 Type 2 diabetes mellitus with diabetic polyneuropathy; E78.5 Hyperlipidemia, unspecified; I10 Essential (primary) hypertension; K21.9 Gastro-esophageal reflux disease without esophagitis; K44.9 Diaphragmatic hernia without obstruction or gangrene; M19.91 Primary osteoarthritis, unspecified site; N39.3 Stress incontinence (female) (male); Z79.84 Long term (current) use of oral hypoglycemic drugs; Z79.899 Other long term (current) drug therapy; Z85.828 Personal history of other malignant neoplasm of skin; Z87.442 Personal history of urinary calculi; Z90.710 Acquired absence of both cervix and uterus; R16.1 Splenomegaly, not elsewhere classified; D49.0 Neoplasm of unspecified behavior of digestive system; Z88.5 Allergy status to narcotic agent; Z88.0 Allergy status to penicillin; Z88.2 Allergy status to sulfonamides; Z88.6 Allergy status to analgesic agent; Z91.041 Radiographic dye allergy status
CPT/HCPCS: 36415; 43260; 74181; 74330; 80053; 80202; 81001; 85025; 87040; 93005; 96361; 96374; 99285